=== PATIENT | female | born 1960 | race Asian ===

== ENCOUNTER 2019-10-21 23:49 | Inpatient (IN) | payer MEDICAID ==
[~2019-10-21] VITALS: Ht 157.5 cm; Wt 45.3 kg
[2019-10-21 23:54] VITALS: Ht 157.5 cm; Wt 45.3 kg
[2019-10-22] VITALS (8 sets, daily range): BP systolic 90–103; BP diastolic 47–66
[2019-10-22 00:40] LABS: BASOPHIL % 0.3 % (0-2); PLATELET COUNT 230 x10^3mcL (130-400)
[2019-10-22 00:41] LABS: RED CELL DISTRIBUTION WIDTH 15.2 % (11.5-14.5)
[2019-10-22 00:53] LABS: CALCIUM 8.5 mg/dL (8.5-10.1); CARBON DIOXIDE 28.5 mmol/L (21-32); CHLORIDE SERUM 106 mmol/L (98-107); CREATININE SERUM 0.6 mg/dL (0.6-1.0); GFR1 > 60 mL/min; GLUCOSE SERUM 146 mg/dL (74-106); POTASSIUM SERUM 3.7 mmol/L (3.5-5.1); SODIUM SERUM 142 mmol/L (136-145)
[2019-10-22 01:03] LABS: ALBUMIN 3.7 g/dL (3.4-5.0); ALKALINE PHOSPHATASE 70 U/L (46-116); ALT/SGPT 95 U/L (14-59); AST/SGOT 110 U/L (15-37); BILIRUBIN TOTAL 0.26 mg/dL (0.20-1.00); TOTAL PROTEIN, SERUM 7.4 g/dL (6.4-8.2)
[2019-10-22 01:10] LABS: FREE T4 1.12 ng/dL (0.76-1.46); FREE THYROXINE INDEX 2.6 ug/dL (1.4-4.5); T3 TOTAL 1.36 ng/mL; T4(THYROXINE) 8.2 ug/dL (4.7-13.3)
[2019-10-22 06:27] LABS: BASOPHIL % 0.5 % (0-2); PLATELET COUNT 216 x10^3mcL (130-400)
[2019-10-22 06:37] LABS: RED CELL DISTRIBUTION WIDTH 15.4 % (11.5-14.5)
[2019-10-22 07:01] LABS: CALCIUM 7.8 mg/dL (8.5-10.1); CARBON DIOXIDE 27.3 mmol/L (21-32); CHLORIDE SERUM 110 mmol/L (98-107); CHOLESTEROL 170 mg/dL (<200); CHOLESTEROL/HDL RATIO 3.1; CREATININE SERUM 0.5 mg/dL (0.6-1.0); GFR1 > 60 mL/min; GLUCOSE SERUM 92 mg/dL (74-106); HDL CHOLESTEROL 54 mg/dL (40-60); POTASSIUM SERUM 3.8 mmol/L (3.5-5.1); SODIUM SERUM 144 mmol/L (136-145); TRIGLYCERIDES 49 mg/dL (<150)
[2019-10-22 09:59] LABS: microscopic required? NO
[2019-10-22 10:08] LABS: urine erythrocyte NEGATIVE (NEGATIVE)
[2019-10-23 03:42] VITALS: BP 112/62
[2019-10-23 07:00] VITALS: BP 102/65
[2019-10-23 07:23] LABS: CALCIUM 8.4 mg/dL (8.5-10.1); CARBON DIOXIDE 27.2 mmol/L (21-32); CHLORIDE SERUM 107 mmol/L (98-107); CREATININE SERUM 0.6 mg/dL (0.6-1.0); GFR1 > 60 mL/min; GLUCOSE SERUM 96 mg/dL (74-106); POTASSIUM SERUM 3.7 mmol/L (3.5-5.1); SODIUM SERUM 142 mmol/L (136-145)
[2019-10-23 07:26] LABS: MAGNESIUM 2.1 mg/dL (1.8-2.4); PHOSPHOROUS 3.6 mg/dL (2.5-4.9)
[2019-10-23] MEDS ORDERED: ASPIR 8181 MG PO (08:19)
[2019-10-23] MEDS ORDERED: AMIODARONE200 MG PO (08:19)
[2019-10-23 08:42] VITALS: BP 102/65
[2019-10-23 08:47] LABS: BASOPHIL % 0.7 % (0-2); PLATELET COUNT 235 x10^3mcL (130-400)
[2019-10-23 08:52] LABS: RED CELL DISTRIBUTION WIDTH 14.9 % (11.5-14.5)
== END 2019-10-23 10:41 | disposition home or self-care (01) | DRG 201 ==
LOC: ED 23:49 → DU 10-22 01:44 → IC 10-22 01:44 → DU 10-22 01:44 → IC 10-22 13:31 → DU 10-22 13:41 → IC 10-22 14:09
PROVIDERS: Emergency Medicine; Internal Medicine Pulmonary Disease; ADMIT Internal Medicine Pulmonary Disease
DX: I48.91 Unspecified atrial fibrillation (principal); I05.2 Rheumatic mitral stenosis with insufficiency; I48.92 Unspecified atrial flutter; D50.9 Iron deficiency anemia, unspecified; Z68.1 Body mass index [BMI] 19.9 or less, adult
CPT/HCPCS: 84439; G0378; J0282; J1160; J1644; J3490; J7030; Q0092